=== PATIENT | female | born 1970 | race Caucasian/White ===

== ENCOUNTER 2017-01-27 09:13 | Emergency (ER) | payer MEDICAID ==
[~2017-01-27] VITALS: Ht 154.9 cm; Wt 75.5 kg
[2017-01-27 09:20] VITALS: BP 153/82
== END 2017-01-27 11:01 | disposition home or self-care (01) ==
LOC: ED 09:13
DX: T78.40XA Allergy, unspecified, initial encounter (principal); X58.XXXA Exposure to other specified factors, initial encounter
CPT/HCPCS: J7512

== ENCOUNTER 2017-11-15 21:36 | Inpatient (IN) | payer MEDICAID ==
[~2017-11-15] VITALS: Ht 154.9 cm; Wt 75.3 kg
[2017-11-15 21:42] VITALS: Ht 154.9 cm; Wt 75.3 kg
[2017-11-16 00:06] LABS: BASOPHIL % 0.4 % (0-2); PLATELET COUNT 235 x10^3mcL (130-400); RED CELL DISTRIBUTION WIDTH 14.4 % (11.5-14.5)
[2017-11-16 00:33] LABS: CALCIUM 8.2 mg/dL (8.5-10.1); CARBON DIOXIDE 24.5 mmol/L (21-32); CHLORIDE SERUM 101 mmol/L (98-107); CREATININE SERUM 0.7 mg/dL (0.6-1.0); GFR1 > 60 mL/min; GLUCOSE SERUM 285 mg/dL (74-106); POTASSIUM SERUM 3.8 mmol/L (3.5-5.1); SODIUM SERUM 137 mmol/L (136-145)
[2017-11-16 00:38] LABS: ALBUMIN 3.8 g/dL (3.4-5.0); ALKALINE PHOSPHATASE 93 U/L (46-116); ALT/SGPT 45 U/L (14-59); AST/SGOT 22 U/L (15-37); BILIRUBIN TOTAL 0.4 mg/dL (0.20-1.00); TOTAL PROTEIN, SERUM 8.1 g/dL (6.4-8.2)
[2017-11-16] MEDS ORDERED: METFORMIN HCL850 MG PO (01:53)
[2017-11-16 03:01] LABS: FREE T4 1.31 ng/dL (0.76-1.46); FREE THYROXINE INDEX 2.8 ug/dL (1.4-4.5); T4(THYROXINE) 8.5 ug/dL (4.7-13.3)
[2017-11-16 03:31] VITALS: BP 170/80
[2017-11-16 03:39] LABS: UA SPECIFIC GRAVITY 1.015 (1.005-1.035); microscopic required? YES; urine erythrocyte 1+ (NEGATIVE)
[2017-11-16 04:09] LABS: T3 TOTAL 0.93 ng/mL
[2017-11-16] MEDS ORDERED: MECLIZINE HYDRO25 M1 PO (04:16)
[2017-11-16] MEDS ORDERED: ZOF4 PO (04:16)
[2017-11-16] MEDS ORDERED: LOSARTAN POTASS25 M1 PO (04:17)
[2017-11-16 04:20] LABS: AMPHETAMINE QUAL UR NONE DETECTED (NEG <=1000)
[2017-11-16 04:49] LABS: CHOLESTEROL/HDL RATIO 4.3; MAGNESIUM 1.9 mg/dL (1.8-2.4); PHOSPHOROUS 3.5 mg/dL (2.5-4.9)
[2017-11-16 06:05] VITALS: BP 125/80
[2017-11-16 13:05] VITALS: BP 163/77
[2017-11-16] MEDS ORDERED: METFORMIN HYD1000 M2 PO (16:06)
[2017-11-16] MEDS ORDERED: LOSARTAN POTASS50 M1 PO (16:06)
[2017-11-16] MEDS ORDERED: ASPIR 8181 MG PO (16:13)
[2017-11-16] MEDS ORDERED: LIPITOR40 MG PO (16:13)
[2017-11-16 17:15] VITALS: BP 186/86
[2017-11-16 18:16] VITALS: BP 185/77
[2017-11-16 18:45] VITALS: BP 177/92
== END 2017-11-16 21:27 | disposition home or self-care (01) | DRG 48 ==
LOC: ED 21:36 → DU 11-16 01:54
PROVIDERS: Emergency Medicine; Family Medicine
DX: G90.8 Other disorders of autonomic nervous system (principal); N17.0 Acute kidney failure with tubular necrosis; E11.65 Type 2 diabetes mellitus with hyperglycemia; I10 Essential (primary) hypertension; N39.0 Urinary tract infection, site not specified; E83.51 Hypocalcemia; E78.5 Hyperlipidemia, unspecified; E66.9 Obesity, unspecified; D64.9 Anemia, unspecified; Z79.899 Other long term (current) drug therapy
CPT/HCPCS: 82962; 83880; 84439; J0696; J0780; J2765; J7030; J8597; Q0092

== ENCOUNTER 2019-09-21 15:41 | Emergency (ER) | payer MEDICAID ==
[~2019-09-21] VITALS: Ht 160 cm; Wt 79.4 kg
[~2019-09-21 15:41] MED LIST: ASPIR 8181 MG PO; LIPITOR40 MG PO; LOSARTAN POTASS25 M1 PO; LOSARTAN POTASS50 M1 PO; MECLIZINE HYDRO25 M1 PO; METFORMIN HCL850 MG PO; METFORMIN HYD1000 M2 PO; ZOF4 PO
[2019-09-21 15:45] VITALS: Ht 160 cm; Wt 79.4 kg
[2019-09-21 18:25] VITALS: BP 105/69
== END 2019-09-21 18:25 | disposition home or self-care (01) ==
LOC: ED 15:41
DX: H57.11 Ocular pain, right eye (principal); R42 Dizziness and giddiness; E11.9 Type 2 diabetes mellitus without complications
CPT/HCPCS: 82962; J1885; J8597; Q0162

== ENCOUNTER 2019-09-24 17:03 | Emergency (ER) | payer MEDICAID ==
[~2019-09-24] VITALS: Ht 154.9 cm; Wt 77.1 kg
[2019-09-24 18:18] VITALS: Ht 154.9 cm; Wt 77.1 kg
[2019-09-24 19:18] LABS: BASOPHIL % 0.4 % (0-2); PLATELET COUNT 240 x10^3mcL (130-400); RED CELL DISTRIBUTION WIDTH 13.7 % (11.5-14.5)
[2019-09-24 19:32] LABS: CALCIUM 9.8 mg/dL (8.5-10.1); CARBON DIOXIDE 23.2 mmol/L (21-32); CHLORIDE SERUM 101 mmol/L (98-107); CREATININE SERUM 0.9 mg/dL (0.6-1.0); GFR1 > 60 mL/min; GLUCOSE SERUM 232 mg/dL (74-106); POTASSIUM SERUM 3.7 mmol/L (3.5-5.1); SODIUM SERUM 137 mmol/L (136-145)
[2019-09-24 19:36] LABS: ALBUMIN 4.1 g/dL (3.4-5.0); ALKALINE PHOSPHATASE 118 U/L (46-116); ALT/SGPT 116 U/L (14-59); AST/SGOT 35 U/L (15-37); BILIRUBIN TOTAL 0.7 mg/dL (0.20-1.00)
[2019-09-24 23:33] VITALS: BP 153/84
== END 2019-09-24 23:33 | disposition home or self-care (01) ==
LOC: ED 17:03
PROVIDERS: Emergency Medicine
DX: E11.49 Type 2 diabetes mellitus with other diabetic neurological complication (principal); E11.9 Type 2 diabetes mellitus without complications
CPT/HCPCS: J7030; Q9967